=== PATIENT | male | born 1985 | race Caucasian/White ===

== ENCOUNTER 2017-05-10 18:59 | Inpatient (IN) | payer MEDICAID ==
[2017-05-10] MEDS ORDERED: CLINDAMYCIN 600MG/50ML PREMIX 600 MG/50 ML BAG IVPB ONE (19:15)
[2017-05-10] MEDS ORDERED: KETOROLAC 30 MG/ML VIAL IVP ONE (19:15)
[2017-05-10] MEDS ORDERED: 0.9 % SODIUM CHLORIDE 1000ML 1,000 ML IV SCH (19:15)
--- NOTE | 2017-05-10 19:21 | Emergency Department Record ---
History of Present Illness - General Chief complaint: Bite Insect/other Stated complaint: INSECT BITE RT FOREARM Source: Patient Mode of Arrival: Ambulatory Limitations: No limitations - History of Present Illness Initial comments: 31 yo male presents to ED with a CC of swelling and pain to the right forearm that began 4 days ago. Patient reports that the swelling began as a raised lesion to the forearm, and he reports that he squeezed the lesion with expression of "way and white" discharge. Patient denies fevers, chills, or recent illness. Patient denies numbness, tingling, or weakness to the forearm distally, and patient denies health problems at his baseline. MD complaint: Abscess/boil Onset/Timin -: Days(s) Location: RUE Severity: Moderate Quality: Aching Consistency: Constant Improves with: None Worsens with: None Associated symptoms: Denies other symptoms Treatments Prior to Arrival: Attempted to drain pus at home - Related Data Home Medications Medication Instructions Recorded Confirmed Last Taken No Home Med [NO HOME MEDS] 05/10/17 05/10/17 Unknown Allergies Allergy/AdvReac Type Severity Reaction Status Date / Time No Known Drug Allergies Allergy Verified 05/10/17 19:13 Review of Systems Constitutional: Denies: Chills, Fever, Malaise, Night sweats Eyes: Denies: Eye discharge, Eye pain ENT: Denies: Congestion, Ear pain, Epistaxis Respiratory: Denies: Cough, Dyspnea Cardiovascular: Denies: Chest pain, Dyspnea on exertion Endocrine: Denies: Fatigue, Heat or cold intolerance Gastrointestinal: Denies: Abdominal pain, Nausea, Vomiting Genitourinary: Denies: Incontinence, Retention Musculoskeletal: Denies: Arthralgia, Back pain, Gout, Joint swelling Skin: Reports: Lesions (swelling, pain, drainage). Denies: Bruising, Change in color, Pruritus Neurological: Denies: Abnormal gait, Confusion, Headache, Seizure Psychiatric: Denies: Anxiety Hematological/Lymphatic: Denies: Anemia, Blood Clots Physical Exam - General General Appearance: Alert, Oriented x3, Cooperative, Mild distress Limitations: No limitations - Head Head exam: Atraumatic, Normocephalic, Normal inspection Head exam detail: negative: Abrasion, Contusion, Aguilera's sign, General tenderness, Hematoma, Laceration - Eye Eye exam: Normal appearance. negative: Conjunctival injection, Periorbital swelling, Periorbital tenderness, Scleral icterus - ENT Ear exam: negative: Auricular hematoma, Auricular trauma Nasal Exam: negative: Active bleeding, Discharge, Dried blood, Foreign body Mouth exam: negative: Drooling, Laceration, Muffled voice, Tongue elevation - Neck Neck exam: Normal inspection. negative: Meningismus, Tenderness - Respiratory Respiratory exam: Normal lung sounds bilaterally. negative: Rales, Respiratory distress, Rhonchi, Stridor - Cardiovascular Cardiovascular Exam: Regular rate, Normal rhythm, Normal heart sounds - GI/Abdominal GI/Abdominal exam: Soft. negative: Rebound, Rigid, Tenderness - Rectal Rectal exam: Deferred - exam: Deferred - Extremities Extremities exam: Tenderness, Other (STS present to the right forearm, ulcerated lesion is present to the dorsyum of the forearm with mild drainage present, stroing distal radial pulse, no crepitation noted, compartments are soft on examination.). negative: Calf tenderness, Pedal edema - Back Back exam: Denies: CVA tenderness (R), CVA tenderness (L) - Neurological Neurological exam: Alert, Normal gait, Oriented X3 - Psychiatric Psychiatric exam: Normal affect, Normal mood - Skin Skin exam: Normal color. negative: Abrasion Type of lesion: negative: abrasion Course - Reevaluation(s) Reevaluation #1: 05/10/17 20:05 Labs reviewed and are grossly unremarkable for an acute process. Right forearm: No acute gas forming bacteria. Clindamycin infusing, will admit for IV antibiotics and possible surgical evaluation. Patient agrees with the plan as discussed. Reevaluation #2: 05/10/17 20:11 Case was discussed with Ольга Sharif, will accept admission. Will also place consultation for general surgery consult in AM. Medical Decision Making - Lab Data Result diagrams: 05/10/17 19:23 05/10/17 19:23 Disposition Disposition: Admit Clinical Impression: Cellulitis of forearm, right Disposition: Still a Patient at [facility] Decision to Admit: Admit from ER Decision to Admit Date: 05/10/17 Decision to Admit Time: 20:10 Condition: (2) Stable Time of Disposition: 20:10 Quality - Quality Measures Quality Measures: N/A - Blood Pressure Screening Does Patient Have Any of the Following: No Blood Pressure Classification: Pre-Hypertensive BP Reading Systolic Measurement: 125 Diastolic Measurement: 86 Screening for High Blood Pressure: < Pre-Hypertensive BP, F/U Documented > [ [id number]] Pre-Hypertensive Follow-up Interventions: Referral to alternative/primary care provider.
[2017-05-10 19:29] LABS: BASO % 0.5 % (0-6); EOS % 4.1 % (0-6); GRAN % 66.1 % (47-80); HEMATOCRIT 40.3 % (42.0-52.0); HEMOGLOBIN 13.9 gm/dl (14.0-18.0); LYMPH % 22.1 % (16-45); MEAN CELL VOLUME 87.6 fl (81-97); MEAN CORPUSCULAR HEMOGLOBIN 30.2 pg (27-33); MEAN CORPUSCULAR HGB CONC 34.5 g/dl (32-36); MONO % 7.2 % (0-9); PLATELET COUNT 222 K/uL (130-400); RED CELL DISTRIBUTION WIDTH 12.4 % (11.5-14.5); WHITE BLOOD COUNT W/O DIFF 10.8 K/uL (4.2-12.2)
[2017-05-10 19:47] LABS: ALB/GLOB RATIO 1.4 (1.1-1.8); ALBUMIN 4.2 g/dL (4.0-5.0); ALKALINE PHOSPHATASE 72 U/L (40-129); ALT/SGPT 20 U/L (<41); AST/SGOT 14 U/L (10.0-50.0); BLOOD UREA NITROGEN 16 mg/dL (6-20); C-REACTIVE PROTEIN 2.4 mg/L (<5.0); CREATININE 0.8 mg/dL (0.7-1.2); EST GLOMERULAR FILTRATION RATE > 60 mL/min; GLUCOSE,RANDOM 146 mg/dL (74-109); TOTAL PROTEIN 7.3 g/dL (6.6-8.7)
[2017-05-10 20:00] LABS: ERYTHROCYTE SEDIMENTATION RATE 13 mm/hr (0-15)
[2017-05-10] MEDS ORDERED: MORPHINE SULFATE 5 MG/ML PFS IVP ONE (20:07)
[2017-05-10] MEDS ORDERED: ONDANSETRON HCL IV 4 MG/2 ML VIAL IVP PRN (21:41)
[2017-05-10] MEDS: CLINDAMYCIN 600MG/50ML PREMIX 600 MG/50 ML BAG IVPB SCH (21:44)
[2017-05-10] MEDS: 0.9 % SODIUM CHLORIDE 1000ML 1,000 ML IV PRN (23:22)
[2017-05-11] MEDS: MORPHINE SULFATE 5 MG/ML PFS IVP PRN ×3 (00:26→08:44)
[2017-05-11] MEDS: CLINDAMYCIN 600MG/50ML PREMIX 600 MG/50 ML BAG IVPB SCH ×3 (06:09→21:31)
[2017-05-11 07:14] LABS: BASO % 0.4 % (0-6); EOS % 4.6 % (0-6); HEMATOCRIT 35.2 % (42.0-52.0); HEMOGLOBIN 12.1 gm/dl (14.0-18.0); LYMPH % 26.8 % (16-45); MEAN CELL VOLUME 88.9 fl (81-97); MEAN CORPUSCULAR HGB CONC 34.4 g/dl (32-36); MEAN PLATELET VOLUME 9.1 fl (7.4-10.4); MONO % 8.2 % (0-9); PLATELET COUNT 163 K/uL (130-400); RED BLOOD COUNT 3.96 M/uL (4.40-5.70); RED CELL DISTRIBUTION WIDTH 12.2 % (11.5-14.5); WHITE BLOOD COUNT W/O DIFF 9.2 K/uL (4.2-12.2)
[2017-05-11 07:18] LABS: MEAN CORPUSCULAR HEMOGLOBIN 30.5 pg (27-33)
--- NOTE | 2017-05-11 07:23 | RADIOLOGY REPORT ---
EXAM: RIGHT FOREARM HISTORY: PAIN AND SWELLING. POSSIBLE INSECT BITE. TECHNIQUE: AP and lateral views of the right forearm were obtained. Comparison: None. Encounter: Initial. FINDINGS: There is normal bone mineralization. No fracture, dislocation, or destructive bone lesion is seen. The articular relations are maintained. There is soft tissue swelling involving the dorsal lateral aspect of the forearm consistent with cellulitis. No foreign body nor subcutaneous emphysema. IMPRESSION: 1. NO ACUTE BONE NOR JOINT ABNORMALITY. 2. SOFT TISSUE SWELLING DORSAL LATERALLY CENTERED AT THE MID FOREARM LEVEL WITHOUT FOREIGN BODY NOR SOFT TISSUE EMPHYSEMA. JOB NUMBER: [id number] MTDD
[2017-05-11 07:32] LABS: BLOOD UREA NITROGEN 15 mg/dL (6-20); CREATININE 0.7 mg/dL (0.7-1.2); EST GLOMERULAR FILTRATION RATE > 60 mL/min; GLUCOSE,RANDOM 139 mg/dL (74-109)
[2017-05-11 07:52] LABS: ERYTHROCYTE SEDIMENTATION RATE 14 mm/hr (0-15)
[2017-05-11] MEDS: 0.9 % SODIUM CHLORIDE 1000ML 1,000 ML IV PRN (10:43)
[2017-05-11] MEDS ORDERED: 0.9 % SODIUM CHLORIDE 1000ML 1,000 ML IV PRN (10:52)
--- NOTE | 2017-05-11 11:00 | History & Physical ---
History of Present Illness - Date of Service Date of Service for History & Physical: 05/11/17 - History of Present Illness Admitting Diagnosis: Cellulitis right forearm History of Present Illness: 31 yo male admitted for right forearm cellulitis. PMHx of smoking, marijuana use. Patient presented to our ED with a 5 day history of right forearm pain. states he had been bitten by a spider 5 days ago. Right lateral forearm swelling, erythema and warmth began within the past 24 hours. He reports being able to express "way and white" d/c from site. WBC normal, afebrile on presentation. x ray of site: right swelling of soft tissue dorsal laterally centered at mid forearm level w/o FB nor soft tissue emphysema. patient started on IV Clindamycin 600 mg Q8H, IVFs and 5 mg of IV Morphine Q4H. Admitted with surgical consults. This morning, patient does not note any change in cellulitis. denies worsening swelling or erythema. Pain well controlled for the first 1-2 hours, however he finds the morphine to be wearing off. remains afebrile. denies numbness, tingling, decreased UE ROM, fever, chills, n/v. Denies h/o MRSA. PCP: none Travel Screening - Travel/Exposure Within Last 30 Days Have you traveled within the last 30 days?: No - Travel/Exposure Within Last Year Have you traveled outside the [place] in the last year?: No - Additonal Travel Details Have you been exposed to anyone with a communicable illness?: No Review of Systems Constitutional: Denies: Chills, Fever, Malaise, Night sweats Eyes: Denies: Eye discharge, Eye pain ENT: Denies: Congestion, Ear pain, Epistaxis Respiratory: Denies: Cough, Dyspnea Cardiovascular: Denies: Chest pain, Dyspnea on exertion Endocrine: Denies: Fatigue, Heat or cold intolerance Gastrointestinal: Denies: Abdominal pain, Nausea, Vomiting Genitourinary: Denies: Incontinence, Retention Musculoskeletal: Denies: Arthralgia, Back pain, Gout, Joint swelling Skin: Reports: Lesions (swelling, pain, drainage). Denies: Bruising, Change in color, Pruritus Neurological: Denies: Abnormal gait, Confusion, Headache, Seizure Psychiatric: Denies: Anxiety Hematological/Lymphatic: Denies: Anemia, Blood Clots Past Medical History - SOCIAL HISTORY Smoking Status: Current every day smoker Alcohol Use: Occasional Drug Use: Occasional Drug Use Detail:: Marijuana - RESPIRATORY Hx Respiratory Disorders: No - CARDIOVASCULAR Hx Cardio Disorders: No - NEURO Hx Neuro Disorders: No - GI Hx GI Disorders: No - Hx Genitourinary Disorders: No - ENDOCRINE Hx Endocrine Disorders: No - MUSCULOSKELETAL Hx Musculoskeletal Disorders: No Hx Arthritis: Yes (knee) - PSYCH Hx Psych Problems: No - HEMATOLOGY/ONCOLOGY Hx Hematology/Oncology Disorders: No Family Medical History Any Significant Family History?: No Hx Cancer: Father, Mother, Grandparents Hx Depression: Brother/Sister Hx Diabetes: Mother Hx HTN: Father, Mother H&P Meds/Allergies - Allergies Allergies: Allergies Allergy/AdvReac Type Severity Reaction Status Date / Time No Known Drug Allergies Allergy Verified 05/10/17 19:13 - Home Medications Home Medications Medication Instructions Recorded Confirmed Last Taken No Home Med [NO HOME MEDS] 05/10/17 05/10/17 Unknown - Active Medications Active Medications: Current Medications Hydrocodone Bitart/Acetaminophen ([place] 7.5mg/325mg) 1 each PO Q4H PRN PRN Reason: Pain - General Clindamycin Phosphate (Cleocin 600 [id number]) 600 mg in 50 mls @ 100 mls/ hr IVPB Q8HR TALIA Sodium Chloride () 1,000 mls @ 50 mls/hr IV .Q20H PRN PRN Reason: LARGE VOLUME IV Ibuprofen (Motrin 600mg) 600 mg PO Q6H PRN PRN Reason: Pain - General Ondansetron HCl (Zofran) 4 mg IVP Q6H PRN PRN Reason: NAUSEA Physical Exam - Vital Signs Vital Signs: Vital Signs - Last 24 Hrs Temp Pulse Pulse Resp BP Pulse Ox 05/11/17 09:00 60 16 05/11/17 05:41 97.9 F 64 18 94/56 97 05/10/17 21:41 98.0 F 75 16 114/74 99 05/10/17 21:33 98.7 F 70 18 105/60 98 - General General Appearance: Alert, Oriented x3, Cooperative, No acute distress Limitations: No limitations - Head Head exam: Atraumatic, Normocephalic, Normal inspection Head exam detail: negative: Abrasion, Contusion, Aguilera's sign, General tenderness, Hematoma, Laceration - Eye Eye exam: Normal appearance. negative: Conjunctival injection, Periorbital swelling, Periorbital tenderness, Scleral icterus - ENT Ear exam: negative: Auricular hematoma, Auricular trauma Nasal Exam: negative: Active bleeding, Discharge, Dried blood, Foreign body Mouth exam: negative: Drooling, Laceration, Muffled voice, Tongue elevation - Neck Neck exam: Normal inspection. negative: Meningismus, Tenderness - Respiratory Respiratory exam: Normal lung sounds bilaterally. negative: Rales, Respiratory distress, Rhonchi, Stridor - Cardiovascular Cardiovascular Exam: Regular rate, Normal rhythm, Normal heart sounds - GI/Abdominal GI/Abdominal exam: Soft. negative: Rebound, Rigid, Tenderness - Rectal Rectal exam: Deferred - exam: Deferred - Extremities Extremities exam: Tenderness, Other (STS present to the right forearm, ulcerated lesion is present to the dorsyum of the forearm with mild drainage present, stroing distal radial pulse, no crepitation noted, compartments are soft on examination.). negative: Calf tenderness, Pedal edema - Back Back exam: Denies: CVA tenderness (R), CVA tenderness (L) - Neurological Neurological exam: Alert, Normal gait, Oriented X3 - Psychiatric Psychiatric exam: Normal affect, Normal mood - Skin Skin exam: Normal color. negative: Abrasion Type of lesion: negative: abrasion Results - Labs Result Diagrams: 05/11/17 07:04 05/11/17 07:04 Labs Last 24 Hours: Laboratory Results - last 24 hr 05/11/17 05/11/17 07:04 07:04 WBC 9.2 RBC 3.96 L Hgb 12.1 L Hct 35.2 L MCV 88.9 MCH 30.5 MCHC 34.4 RDW 12.2 Plt Count 163 MPV 9.1 Gran % 60.0 Lymphocytes % 26.8 Monocytes % 8.2 Eosinophils % 4.6 Basophils % 0.4 ESR 14 Sodium 137 Potassium 3.8 Chloride 101 Carbon Dioxide 25.0 Anion Gap 11.0 BUN 15 Creatinine 0.7 Estimated GFR > 60 Random Glucose 139 H Calcium 8.1 L VTE H&P Assessment - Risk for VTE Risk for VTE: Yes Risk Level: Very Low Risk Assessment Date: 05/11/17 Risk Assessment Time: 09:00 VTE Orders Placed or Will Be Placed: No VTE Reason for No Prophylaxis: Not Indicated (patient ambulating the room) Plan - Detailed Diagnosis and Plan (1) Cellulitis of forearm, right Current Visit: Yes Status: Acute Base Code: L03.113 - CELLULITIS OF RIGHT UPPER LIMB Comment: 05/11- x ray: right ST swelling dorsal laterally centered at mid forearm level w/o FB or soft tissue emphysema. normal WBC, ESR. Afebrile. - obtain culture - gen surg consult - decrease IVFs to 50 mls/hr - continue Clindamycin 600 mg Q8H - Morphine D/C's. Will start PO [place] 7.5/325 mg Q4H, 600 mg of Ibuprofen Q6H. - will continue to monitor closely. I anticipate D/C home tomorrow depending on symptom improvement and pain control. (2) Smoker Current Visit: Yes Status: Acute Base Code: F17.200 - NICOTINE DEPENDENCE, UNSPECIFIED, UNCOMPLICATED Comment: 05/11- nicotine patch qd (3) Full code status Current Visit: Yes Status: Acute Base Code: Z78.9 - OTHER SPECIFIED HEALTH STATUS Comment: 05/11- pt is full code
[2017-05-11] MEDS: HYDROCODONE/APAP 7.5/325MG TABLET PO PRN ×3 (11:25→20:24)
[2017-05-11] MEDS: NICOTINE 21 MG/24 HOUR PATCH TD SCH (11:25)
[2017-05-11] MEDS: IBUPROFEN 600 MG TABLET PO PRN ×2 (13:57→20:14)
[2017-05-11 17:47] LABS: BASO % 0.5 % (0-6); EOS % 4.7 % (0-6); GRAN % 61.7 % (47-80); HEMATOCRIT 36.4 % (42.0-52.0); HEMOGLOBIN 12.7 gm/dl (14.0-18.0); LYMPH % 24.3 % (16-45); MEAN CELL VOLUME 87.7 fl (81-97); MEAN CORPUSCULAR HEMOGLOBIN 30.6 pg (27-33); MEAN CORPUSCULAR HGB CONC 34.9 g/dl (32-36); MEAN PLATELET VOLUME 9.1 fl (7.4-10.4); MONO % 8.8 % (0-9); PLATELET COUNT 190 K/uL (130-400); RED BLOOD COUNT 4.15 M/uL (4.40-5.70); RED CELL DISTRIBUTION WIDTH 12.2 % (11.5-14.5); WHITE BLOOD COUNT W/O DIFF 8.1 K/uL (4.2-12.2)
[2017-05-11 18:20] LABS: ERYTHROCYTE SEDIMENTATION RATE 21 mm/hr (0-15)
[2017-05-11] MEDS ORDERED: MORPHINE SULFATE 5 MG/ML PFS IVP PRN (22:29)
[2017-05-12] MEDS: HYDROCODONE/APAP 7.5/325MG TABLET PO PRN ×4 (03:06→20:06)
[2017-05-12] MEDS: CLINDAMYCIN 600MG/50ML PREMIX 600 MG/50 ML BAG IVPB SCH ×3 (05:56→21:07)
[2017-05-12] MEDS: IBUPROFEN 600 MG TABLET PO PRN ×2 (06:06→12:53)
[2017-05-12 06:38] LABS: BASO % 0.6 % (0-6); EOS % 4.5 % (0-6); GRAN % 60.6 % (47-80); HEMATOCRIT 37.6 % (42.0-52.0); LYMPH % 26.8 % (16-45); MEAN CELL VOLUME 88.1 fl (81-97); MEAN CORPUSCULAR HEMOGLOBIN 30.4 pg (27-33); MEAN CORPUSCULAR HGB CONC 34.6 g/dl (32-36); MEAN PLATELET VOLUME 9.4 fl (7.4-10.4); MONO % 7.5 % (0-9); PLATELET COUNT 194 K/uL (130-400); RED BLOOD COUNT 4.27 M/uL (4.40-5.70); RED CELL DISTRIBUTION WIDTH 12.1 % (11.5-14.5); WHITE BLOOD COUNT W/O DIFF 8.9 K/uL (4.2-12.2)
[2017-05-12 07:37] LABS: ERYTHROCYTE SEDIMENTATION RATE 23 mm/hr (0-15)
--- NOTE | 2017-05-12 10:53 | Physician Progress Note ---
Subjective - Date Date of Physician Progress Note: 05/12/17 - Subjective Subjective Comment: patient lying comfortably in bed. right forearm cellulitis less painful. swelling & erythema (outlined) surrounding site improving. continues to have yellow drainage from site. patient tolerating meals. denies fever, chills, n/ v. ambulating the room. nicotine patch helping. Objective - Vital Signs Vital Signs: Vital Signs - Last 24 Hrs Temp Pulse Resp BP Pulse Ox 05/12/17 08:47 15 05/12/17 03:08 97.3 F L 66 19 117/69 98 05/11/17 21:00 18 05/11/17 20:40 97.6 F 77 18 135/78 92 L 05/11/17 13:00 98.3 F 67 18 100/60 97 - General General Appearance: Alert, Oriented x3, Cooperative, No acute distress Limitations: No limitations - Head Head exam: Atraumatic, Normocephalic, Normal inspection Head exam detail: negative: Abrasion, Contusion, Aguilera's sign, General tenderness, Hematoma, Laceration - Eye Eye exam: Normal appearance. negative: Conjunctival injection, Periorbital swelling, Periorbital tenderness, Scleral icterus - ENT Ear exam: negative: Auricular hematoma, Auricular trauma Nasal Exam: negative: Active bleeding, Discharge, Dried blood, Foreign body Mouth exam: negative: Drooling, Laceration, Muffled voice, Tongue elevation - Neck Neck exam: Normal inspection. negative: Meningismus, Tenderness - Respiratory Respiratory exam: Normal lung sounds bilaterally, Wheezes (faint throughout). negative: Rales, Respiratory distress, Rhonchi, Stridor - Cardiovascular Cardiovascular Exam: Regular rate, Normal rhythm, Normal heart sounds - GI/Abdominal GI/Abdominal exam: Soft. negative: Rebound, Rigid, Tenderness - Rectal Rectal exam: Deferred - exam: Deferred - Extremities Extremities exam: Tenderness, Other (STS present to the right forearm, ulcerated lesion is present to the dorsyum of the forearm with mild yellow drainage present, strong distal radial pulse & cap refill, no crepitation noted , compartments are soft on examination. normal R elbow and wrist ROM). negative : Calf tenderness, Pedal edema - Back Back exam: Denies: CVA tenderness (R), CVA tenderness (L) - Neurological Neurological exam: Alert, Normal gait, Oriented X3 - Psychiatric Psychiatric exam: Normal affect, Normal mood - Skin Skin exam: Normal color. negative: Abrasion Type of lesion: negative: abrasion Assessment and Plan - Assessment and Plan (1) Cellulitis of forearm, right Current Visit: Yes Status: Acute Base Code: L03.113 - CELLULITIS OF RIGHT UPPER LIMB Comment: 05/12- x ray: right ST swelling dorsal laterally centered at mid forearm level w/o FB or soft tissue emphysema. normal WBC. ESR 24 ( increased from 14). Afebrile. CT of site: cellulitis, ow relatively unremarkable. - culture pending - gen surg consult- Dr. Donald contacted re patient. He will come see patient later today. - hold IVFs. encouraged PO hydration. - continue IV Clindamycin 600 mg Q8H - PO [place] 7.5/325 mg Q4H, 600 mg of Ibuprofen Q6H, 5 mg of IV Morphine PRN for breakthrough pain - will continue to monitor closely. (2) Smoker Current Visit: Yes Status: Acute Base Code: F17.200 - NICOTINE DEPENDENCE, UNSPECIFIED, UNCOMPLICATED Comment: 05/12- nicotine patch qd (3) Full code status Current Visit: Yes Status: Acute Base Code: Z78.9 - OTHER SPECIFIED HEALTH STATUS Comment: 05/12- pt is full code Results - Labs Result Diagrams: 05/12/17 06:20 05/11/17 07:04 Labs Last 24 Hours: Laboratory Results - last 24 hr 05/11/17 05/12/17 17:42 06:20 WBC 8.1 8.9 RBC 4.15 L 4.27 L Hgb 12.7 L 13.0 L Hct 36.4 L 37.6 L MCV 87.7 88.1 MCH 30.6 30.4 MCHC 34.9 34.6 RDW 12.2 12.1 Plt Count 190 194 MPV 9.1 9.4 Gran % 61.7 60.6 Lymphocytes % 24.3 26.8 Monocytes % 8.8 7.5 Eosinophils % 4.7 4.5 Basophils % 0.5 0.6 ESR 21 H 23 H DVT/PE Assessment - Risk for VTE Risk for VTE: No Risk Level: Very Low Risk Assessment Date: 05/11/17 Risk Assessment Time: 09:00 VTE Orders Placed or Will Be Placed: No VTE Reason for No Prophylaxis: Not Indicated (patient ambulating the room) - Active Medicaitons Current Medications: Current Medications Hydrocodone Bitart/Acetaminophen ([place] 7.5mg/325mg) 1 each PO Q4H PRN PRN Reason: Pain - General Last Admin: 05/12/17 09:54 Dose: 1 each Clindamycin Phosphate (Cleocin 600 [id number]) 600 mg in 50 mls @ 100 mls/ hr IVPB Q8HR TALIA Last Infusion: 05/12/17 06:48 Dose: Infused Ibuprofen (Motrin 600mg) 600 mg PO Q6H PRN PRN Reason: Pain - General Last Admin: 05/12/17 06:06 Dose: 600 mg Morphine Sulfate (Morphine Sulfate) 5 mg IVP Q6H PRN PRN Reason: pain Stop: 05/18/17 22:30 Last Admin: 05/11/17 22:39 Dose: 5 mg Nicotine (Nicotine 21mg) 1 patch TD Q24H TALIA Last Admin: 05/11/17 11:25 Dose: 1 patch Ondansetron HCl (Zofran) 4 mg IVP Q6H PRN PRN Reason: NAUSEA AMI Plan - Labs Result Diagrams: 05/12/17 06:20 05/11/17 07:04
[2017-05-12] MEDS: NICOTINE 21 MG/24 HOUR PATCH TD SCH (12:53)
[2017-05-13] MEDS: HYDROCODONE/APAP 7.5/325MG TABLET PO PRN ×3 (00:56→14:04)
[2017-05-13] MEDS: CLINDAMYCIN 600MG/50ML PREMIX 600 MG/50 ML BAG IVPB SCH (05:38)
--- NOTE | 2017-05-13 10:50 | Discharge Summary ---
Providers Discharge Summary Date: 05/13/17 Date of admission: 05/10/17 21:28 Expected Date of Discharge: 05/13/17 Attending physician: Arthur Nagel Physical Exam - Vital Signs Vital Signs: Vital Signs - Last 24 Hrs Temp Pulse Resp BP Pulse Ox 05/13/17 05:37 98.2 F 73 18 115/84 98 05/12/17 21:34 98.0 F 75 18 138/81 97 05/12/17 20:45 16 05/12/17 11:21 98 F 86 16 114/73 98 - General General Appearance: Alert, Oriented x3, Cooperative, No acute distress Limitations: No limitations - Head Head exam: Atraumatic, Normocephalic, Normal inspection Head exam detail: negative: Abrasion, Contusion, Aguilera's sign, General tenderness, Hematoma, Laceration - Eye Eye exam: Normal appearance. negative: Conjunctival injection, Periorbital swelling, Periorbital tenderness, Scleral icterus - ENT Ear exam: negative: Auricular hematoma, Auricular trauma Nasal Exam: negative: Active bleeding, Discharge, Dried blood, Foreign body Mouth exam: negative: Drooling, Laceration, Muffled voice, Tongue elevation - Neck Neck exam: Normal inspection. negative: Meningismus, Tenderness - Respiratory Respiratory exam: Normal lung sounds bilaterally, Wheezes (faint throughout). negative: Rales, Respiratory distress, Rhonchi, Stridor - Cardiovascular Cardiovascular Exam: Regular rate, Normal rhythm, Normal heart sounds - GI/Abdominal GI/Abdominal exam: Soft. negative: Rebound, Rigid, Tenderness - Rectal Rectal exam: Deferred - exam: Deferred - Extremities Extremities exam: Tenderness, Other (STS present to the right forearm- has significantly improved, ulcerated lesion is present to the dorsyum of the forearm with mild yellow drainage present. erythema has decreased. not going past drawn borders. strong distal radial pulse & cap refill, no crepitation noted, compartments are soft on examination. normal R elbow and wrist ROM). negative: Calf tenderness, Pedal edema - Back Back exam: Denies: CVA tenderness (R), CVA tenderness (L) - Neurological Neurological exam: Alert, Normal gait, Oriented X3 - Psychiatric Psychiatric exam: Normal affect, Normal mood - Skin Skin exam: Normal color. negative: Abrasion Type of lesion: negative: abrasion Hospitalization - Hospitalization Admission Diagnosis: Cellulitis right forearm - Problem List/Discharge Diagnosis (1) Cellulitis of forearm, right Current Visit: Yes Status: Acute Base Code: L03.113 - CELLULITIS OF RIGHT UPPER LIMB Comment: 05/13- x ray: right ST swelling dorsal laterally centered at mid forearm level w/o FB or soft tissue emphysema. normal WBC. Remained afebrile during stay. CT of site: cellulitis, ow relatively unremarkable. - preliminary cx: staph, sensitivity pending. - complete Clindamycin course. - PO [place] 7.5/325 mg Q4H, 600 mg of Ibuprofen Q6H - keep area clean. change bandage twice daily. - return to our urgent care Tuesday at noon for recheck of wound by myself (2) Smoker Current Visit: Yes Status: Acute Base Code: F17.200 - NICOTINE DEPENDENCE, UNSPECIFIED, UNCOMPLICATED Comment: 05/13- follow up with pcp re smoking cessation (3) Full code status Current Visit: Yes Status: Acute Base Code: Z78.9 - OTHER SPECIFIED HEALTH STATUS Comment: 05/13- pt remained full code - Hospitalization Course Disposition: Home, Self-Care Hospital Course: 31 yo male admitted for right forearm cellulitis. PMHx of smoking, marijuana use. Patient presented to our ED with a 5 day history of right forearm pain. states he had been bitten by a spider 5 days ago. Right lateral forearm swelling, erythema and warmth began within the past 24 hours. He reports being able to express "way and white" d/c from site. WBC normal, afebrile on presentation. x ray of site: right swelling of soft tissue dorsal laterally centered at mid forearm level w/o FB nor soft tissue emphysema. patient started on IV Clindamycin 600 mg Q8H, IVFs and 5 mg of IV Morphine Q4H. Admitted with surgical consults. This morning, patient does not note any change in cellulitis. denies worsening swelling or erythema. Pain well controlled for the first 1-2 hours, however he finds the morphine to be wearing off. remains afebrile. denies numbness, tingling, decreased UE ROM, fever, chills, n/v. Denies h/o MRSA. PCP: none 05/13- patient sitting up in bed comfortably. states he didn't sleep last night. he typically takes 30 mg of melatonin and did not have this. states pain has decreased. he continues to use norco and ibuprofen for discomfort. less drainage on bandage. afebrile. swelling/erythema have gone down. tolerating meals. ambulating the room. normal GI/ function. no additional concerns. Procedures: Imaging and X-Rays 05/11/17 16:24 UPPER EXTREMITY WWO CONTRAST [CT] Stat Abnormal Labs: Abnormal Lab Results 05/11/17 05/11/17 05/11/17 Range/Units 07:04 07:04 17:42 RBC 3.96 L 4.15 L (4.40-5.70) M/uL Hgb 12.1 L 12.7 L (14.0-18.0) gm/dl Hct 35.2 L 36.4 L (42.0-52.0) % ESR 21 H (0-15) mm/hr Random Glucose 139 H (74-109) mg/dL Calcium 8.1 L (8.6-10.0) mg/dL 05/12/17 Range/Units 06:20 RBC 4.27 L (4.40-5.70) M/uL Hgb 13.0 L (14.0-18.0) gm/dl Hct 37.6 L (42.0-52.0) % ESR 23 H (0-15) mm/hr Random Glucose (74-109) mg/dL Calcium (8.6-10.0) mg/dL Condition at Discharge: (2) Stable Discharge Medications - Discharge Medications Prescriptions: Hydrocodone/Acetaminophen [[place] 7.5-325 Tablet] 1 each PO Q6HR PRN #12 tablet PRN Reason: Pain - General Clindamycin HCl [Cleocin HCl] 300 mg PO Q6H #32 cap Ibuprofen [Motrin 600Mg] 600 mg PO Q6H PRN #40 PRN Reason: Pain - General Home Medications: Ambulatory Orders Clindamycin HCl [Cleocin HCl] 300 mg PO Q6H #32 cap 05/13/17 [Last Taken Unknown ] Hydrocodone/Acetaminophen [[place] 7.5-325 Tablet] 1 each PO Q6HR PRN #12 tablet 05/13/17 [Last Taken Unknown] Ibuprofen [Motrin 600Mg] 600 mg PO Q6H PRN #40 05/13/17 [Last Taken Unknown] Discharge Plan - Discharge Instructions Activity at Discharge: Increase Activity as Tolerated Diet at Discharge: Regular Diet Wound Primary Dressing Type: Non-Adherent Gauze Pad Additional Instructions: Medications: Clindamycin 300 mg Q6H's- take complete prescription [place] 7.5/325 Q6H and Ibuprofen as needed for pain. keep site clean. change bandage twice daily. return to our urgent care at noon on Wednesday 05/16 for recheck of wound. monitor for worsening swelling, erythema, and fever or chills. return sooner if this is the case. Quality Measures - Quality Measures Quality Measures: Documentation of Current Medications in Medical Record, Screening for High Blood Pressure and F/U Documented - Current Medications Quality Measure: Measure #130: Documentation of Current Medications Documentation of Current Medications: <Current Medications Documented/Reviewed> [G8427] - Blood Pressure Screening Quality Measure: Screening for High Blood Pressure and Follow-Up Documented Does Patient Have Any of the Following: No Blood Pressure Classification: Pre-Hypertensive BP Reading Systolic Measurement: 125 Diastolic Measurement: 86 Screening for High Blood Pressure: < Normal BP, F/U Not Required > [G8783] Pre-Hypertensive Follow-up Interventions: Follow-up with rescreen every year. - Elder Abuse Suspicion Index EASI Reference Information: Hanane HANSON, Jameel C, Didier D, Lilibeth Porter.Development and validation of a tool to assist physicians identification of elder abuse: The Elder Abuse Suspicion Index (EASI ). Journal of Elder Abuse and Neglect, 2008; 20 (3): 276-300.
[2017-05-13] MEDS: NICOTINE 21 MG/24 HOUR PATCH TD SCH (11:43)
[2017-05-13] MEDS ORDERED: CLINDAMYCIN 150 MG CAP PO SCH ×2 (12:00→14:00)
--- NOTE | 2017-05-13 16:08 | CT SCAN REPORT ---
EXAM: CT SCAN UPPER EXTREMITY WWO CONTRAST HISTORY: CELLULITIS, STATUS POST BITE. TECHNIQUE: Sequential axial images were obtained through the left upper extremity with and without intravenous administration of 100 mL of Omnipaque- 300 contrast material. FINDINGS: There is diffuse cellulitis. No organized fluid collection to suggest abscess. The osseous structures are normal. IMPRESSION: DIFFUSE CELLULITIS. NO ORGANIZED FLUID COLLECTION TO SUGGEST ABSCESS. NO OSSEOUS ABNORMALITY. JOB NUMBER: [id number] MTDD
== END 2017-05-13 15:29 | disposition home or self-care (01) | DRG 603 ==
LOC: ER 18:59 → OBSVTOIN 21:28 → MERGE 21:28 → MEDSURG 21:28
PROVIDERS: ADMIT Internal Medicine; ATTEND Internal Medicine
DX: L03.113 Cellulitis of right upper limb (principal); B95.62 Methicillin resistant Staphylococcus aureus infection as the cause of diseases classified elsewhere; W57.XXXA Bitten or stung by nonvenomous insect and other nonvenomous arthropods, initial encounter; Z87.891 Personal history of nicotine dependence
CPT/HCPCS: 80048; 80053; 85025; 85651; 86140; 96366; 96375; 99223; 99232; 99239; 99285; J1885; J7030

== ENCOUNTER 2017-09-02 14:19 | Emergency (ER) | payer MEDICAID ==
[2017-09-02] MEDS ORDERED: PANTOPRAZOLE SODIUM IV 40 MG VIAL IVP ONE (14:49)
[2017-09-02] MEDS ORDERED: ONDANSETRON HCL IV 4 MG/2 ML VIAL IV ONE (14:49)
[2017-09-02] MEDS ORDERED: 0.9 % SODIUM CHLORIDE 1,000 ML BAG IV ONE (14:49)
[2017-09-02] MEDS ORDERED: HYDROMORPHONE HCL 1 MG/ML SYRINGE IVP ONE (14:52)
--- NOTE | 2017-09-02 14:53 | Emergency Department Record ---
History of Present Illness - General Chief Complaint: Abdominal Pain Stated Complaint: ABD PAIN Time Seen by Provider: 09/02/17 14:41 Source: Patient Mode of Arrival: Ambulatory Limitations: No limitations - History of Present Illness Initial Comments: pt had coffee ground emesis and black stool today along with abd pain. pt fears he has cancer like his dad. Complaint: Abdominal pain Onset/Timin -: Hour(s) Location: LUQ, RUQ Radiation: None Migration to: No migration Severity: Severe Quality: Stabbing Consistency: Constant Improves With: Nothing Worsens With: Nothing Associated Symptoms: Diarrhea, Hematemesis, Hematochezia, Melena, Vomiting - Related Data Previous Rx's Medication Instructions Recorded Clindamycin HCl [Cleocin HCl] 300 mg PO Q6H #32 cap 05/13/17 Ibuprofen [Motrin 600Mg] 600 mg PO Q6H PRN #40 05/13/17 Omeprazole [Prilosec] 20 mg PO DAILY #14 cap 09/02/17 Allergies Allergy/AdvReac Type Severity Reaction Status Date / Time No Known Drug Allergies Allergy Verified 09/02/17 14:25 Travel Screening - Travel/Exposure Within Last 30 Days Have you traveled within the last 30 days?: No Review of Systems Reviewed: No additional complaints except as noted below Constitutional: Reports: As per HPI. Denies: Chills, Fever, Malaise, Night sweats, Weakness, Weight change Eyes: Reports: As per HPI. Denies: Eye discharge, Eye pain, Photophobia, Vision change ENT: Reports: As per HPI. Denies: Congestion, Dental pain, Ear pain, Epistaxis , Hearing loss, Throat pain Respiratory: Reports: As per HPI. Denies: Cough, Dyspnea, Hemoptysis, Stridor, Wheezes Cardiovascular: Reports: As per HPI. Denies: Arrhythmia, Chest pain, Dyspnea on exertion, Edema, Murmurs, Orthopnea, Palpitations, Paroxysmal nocturnal dyspnea, Rheumatic Fever, Syncope Endocrine: Reports: As per HPI. Denies: Fatigue, Heat or cold intolerance, Polydipsia, Polyuria Gastrointestinal: Reports: As per HPI, Abdominal pain, Hematemesis, Hematochezia , Melena, Nausea, Vomiting. Denies: Constipation, Diarrhea Genitourinary: Reports: As per HPI. Denies: Dysuria, Frequency, Hematuria, Incontinence, Retention, Testicular pain, Testicular mass, Urgency Musculoskeletal: Reports: As per HPI. Denies: Arthralgia, Back pain, Gout, Joint swelling, Myalgia, Neck pain Skin: Reports: As per HPI. Denies: Bruising, Change in color, Change in hair/ nails, Lesions, Pruritus, Rash Neurological: Reports: As per HPI. Denies: Abnormal gait, Confusion, Headache, Numbness, Paresthesias, Seizure, Tingling, Tremors, Vertigo, Weakness Psychiatric: Reports: As per HPI. Denies: Anxiety, Auditory hallucinations, Depression, Homicidal thoughts, Suicidal thoughts, Visual hallucinations Hematological/Lymphatic: Reports: As per HPI. Denies: Anemia, Blood Clots, Easy bleeding, Easy bruising, Swollen glands Past Medical History - SOCIAL HISTORY Smoking Status: Current every day smoker Alcohol Use: None Drug Use: None - RESPIRATORY Hx Respiratory Disorders: No - CARDIOVASCULAR Hx Cardio Disorders: No - NEURO Hx Neuro Disorders: No - GI Hx GI Disorders: No - Hx Genitourinary Disorders: No - ENDOCRINE Hx Endocrine Disorders: No - MUSCULOSKELETAL Hx Musculoskeletal Disorders: No - PSYCH Hx Psych Problems: No - HEMATOLOGY/ONCOLOGY Hx Hematology/Oncology Disorders: No Family Medical History Any Significant Family History?: Yes Hx Cancer: Father, Mother, Grandparents Hx Depression: Brother/Sister Hx Diabetes: Mother Hx HTN: Father, Mother Physical Exam - General General Appearance: Alert, Oriented x3, Cooperative, Moderate distress, Other ( hyperventilating) - Head Head exam: Normal inspection - Eye Eye exam: Normal appearance, PERRL, EOMI Pupils: Normal accommodation - ENT ENT exam: Normal exam, Mucous membranes moist, Normal external ear exam, Normal orophraynx Ear exam: Normal external inspection. negative: External canal tenderness Nasal Exam: Normal inspection. negative: Discharge, Sinus tenderness Mouth exam: Normal external inspection, Tongue normal Teeth exam: Normal inspection. negative: Dental caries Throat exam: Normal inspection. negative: Tonsillar erythema, Tonsillar exudate - Neck Neck exam: Normal inspection, Full ROM. negative: Tenderness - Respiratory Respiratory exam: Normal lung sounds bilaterally. negative: Respiratory distress - Cardiovascular Cardiovascular Exam: Normal rhythm, Normal heart sounds, Tachycardia - GI/Abdominal GI/Abdominal exam: Soft, Normal bowel sounds, Guarding, Tenderness - Rectal Rectal exam: Black stool, Heme (+) stool - exam: Deferred - Extremities Extremities exam: Normal inspection, Full ROM, Normal capillary refill. negative: Tenderness - Back Back exam: Reports: Normal inspection, Full ROM. Denies: Muscle spasm, Rash noted, Tenderness - Neurological Neurological exam: Alert, CN II-XII intact, Normal gait, Oriented X3 - Psychiatric Psychiatric exam: Anxious, Normal mood - Skin Skin exam: Dry, Intact, Normal color, Warm Course Vital Signs 09/02/17 14:30 Temperature 98.3 F Pulse Rate 133 H Respiratory 35 H Rate Blood Pressure 151/103 Pulse Ox 97 - Reevaluation(s) Reevaluation #1: 09/02/17 16:59 ng tube placed scant blood and brown contents. pt has a hx of motrin use though he denies in the last few days. Medical Decision Making - Lab Data Result diagrams: 09/02/17 14:50 09/02/17 14:50 Disposition Disposition: Discharge Clinical Impression: GI bleed Qualifiers: GI bleed type/associated pathology: gastritis Gastritis type: unspecified gastritis Qualified Code(s): K29.71 - Gastritis, unspecified, with bleeding Disposition: Home, Self-Care Condition: (1) Good Instructions: Gastrointestinal Bleeding (ED) Additional Instructions: follow up with GI doctor. return sooner if worse. no motrin, peptobismal or aspirin Prescriptions: Omeprazole [Prilosec] 20 mg PO DAILY #14 Referrals: LINDA CHUNG [DOCTOR OF OSTEOPATH] - [facility] Specialty Clinics [Provider Group] Forms: Patient Portal Access Quality - Quality Measures Quality Measures: N/A - Blood Pressure Screening Does Patient Have Any of the Following: No Blood Pressure Classification: Hypertensive Reading Systolic Measurement: 151 Diastolic Measurement: 103 Screening for High Blood Pressure: < First Hypertensive BP, F/U Documented > [ G8950] First Hypertensive Follow-up Interventions: Follow-up with rescreen GT 1 day and LT 4 weeks.
[2017-09-02 15:11] LABS: BASO % 0.2 % (0-6); EOS % 0.1 % (0-6); GRAN % 71.8 % (47-80); HEMATOCRIT 39.9 % (42.0-52.0); LYMPH % 21.3 % (16-45); MEAN CELL VOLUME 86.7 fl (81-97); MEAN CORPUSCULAR HEMOGLOBIN 30.4 pg (27-33); MEAN CORPUSCULAR HGB CONC 35.1 g/dl (32-36); MEAN PLATELET VOLUME 9.9 fl (7.4-10.4); MONO % 6.6 % (0-9); PLATELET COUNT 285 K/uL (130-400); RED CELL DISTRIBUTION WIDTH 12.4 % (11.5-14.5); WHITE BLOOD COUNT W/O DIFF 13.6 K/uL (4.2-12.2)
[2017-09-02 15:17] LABS: BLOOD UREA NITROGEN 17 mg/dL (6-20); CREATININE 0.7 mg/dL (0.7-1.2); EST GLOMERULAR FILTRATION RATE > 60 mL/min
[2017-09-02 15:20] LABS: GLUCOSE,RANDOM 140 mg/dL (74-109)
[2017-09-02 15:23] LABS: ALBUMIN 5.1 g/dL (4.0-5.0); ALKALINE PHOSPHATASE 62 U/L (40-129); ALT/SGPT 19 U/L (<41); AST/SGOT 23 U/L (10.0-50.0); LIPASE 10 U/L (13-60)
[2017-09-02] MEDS ORDERED: LORAZEPAM 2 MG/ML VIAL IV ONE (15:28)
[2017-09-02 15:29] LABS: BILIRUBIN,DIRECT < 0.2 mg/dL (0-0.3)
[2017-09-02] MEDS ORDERED: MAGNESIUM HYDROXIDE/AL HYDROX 30 ML, LIDOCAINE VISC 2% 200 MG PO ONE ×2 (17:09)
--- NOTE | 2017-09-02 17:12 | Emergency Department Record ---
History of Present Illness - General Chief Complaint: Abdominal Pain Stated Complaint: ABD PAIN Time Seen by Provider: 09/02/17 14:41 Source: Patient Mode of Arrival: Ambulatory Limitations: No limitations - History of Present Illness MD Complaint: Abdominal pain Onset/Timin -: Hour(s) Location: LUQ, RUQ Radiation: None Migration to: No migration Severity: Severe Quality: Stabbing Consistency: Constant Improves With: Nothing Worsens With: Nothing Associated Symptoms: Diarrhea, Hematemesis, Hematochezia, Melena, Vomiting - Related Data Previous Rx's Medication Instructions Recorded Clindamycin HCl [Cleocin HCl] 300 mg PO Q6H #32 cap 05/13/17 Ibuprofen [Motrin 600Mg] 600 mg PO Q6H PRN #40 05/13/17 Omeprazole [Prilosec] 20 mg PO DAILY #14 cap. 09/02/17 Ondansetron [Zofran Odt] 4 mg PO Q8H #10 tab.rapdis 09/02/17 Allergies Allergy/AdvReac Type Severity Reaction Status Date / Time No Known Drug Allergies Allergy Verified 09/02/17 14:25 Travel Screening - Travel/Exposure Within Last 30 Days Have you traveled within the last 30 days?: No Review of Systems Constitutional: Reports: As per HPI. Denies: Chills, Fever, Malaise, Night sweats, Weakness, Weight change Eyes: Reports: As per HPI. Denies: Eye discharge, Eye pain, Photophobia, Vision change ENT: Reports: As per HPI. Denies: Congestion, Dental pain, Ear pain, Epistaxis , Hearing loss, Throat pain Respiratory: Reports: As per HPI. Denies: Cough, Dyspnea, Hemoptysis, Stridor, Wheezes Cardiovascular: Reports: As per HPI. Denies: Arrhythmia, Chest pain, Dyspnea on exertion, Edema, Murmurs, Orthopnea, Palpitations, Paroxysmal nocturnal dyspnea, Rheumatic Fever, Syncope Endocrine: Reports: As per HPI. Denies: Fatigue, Heat or cold intolerance, Polydipsia, Polyuria Gastrointestinal: Reports: As per HPI, Abdominal pain, Hematemesis, Hematochezia , Melena, Nausea, Vomiting. Denies: Constipation, Diarrhea Genitourinary: Reports: As per HPI. Denies: Dysuria, Frequency, Hematuria, Incontinence, Retention, Testicular pain, Testicular mass, Urgency Musculoskeletal: Reports: As per HPI. Denies: Arthralgia, Back pain, Gout, Joint swelling, Myalgia, Neck pain Skin: Reports: As per HPI. Denies: Bruising, Change in color, Change in hair/ nails, Lesions, Pruritus, Rash Neurological: Reports: As per HPI. Denies: Abnormal gait, Confusion, Headache, Numbness, Paresthesias, Seizure, Tingling, Tremors, Vertigo, Weakness Psychiatric: Reports: As per HPI. Denies: Anxiety, Auditory hallucinations, Depression, Homicidal thoughts, Suicidal thoughts, Visual hallucinations Hematological/Lymphatic: Reports: As per HPI. Denies: Anemia, Blood Clots, Easy bleeding, Easy bruising, Swollen glands Past Medical History - SOCIAL HISTORY Smoking Status: Current every day smoker Alcohol Use: None Drug Use: None - RESPIRATORY Hx Respiratory Disorders: No - CARDIOVASCULAR Hx Cardio Disorders: No - NEURO Hx Neuro Disorders: No - GI Hx GI Disorders: No - Hx Genitourinary Disorders: No - ENDOCRINE Hx Endocrine Disorders: No - MUSCULOSKELETAL Hx Musculoskeletal Disorders: No - PSYCH Hx Psych Problems: No - HEMATOLOGY/ONCOLOGY Hx Hematology/Oncology Disorders: No Family Medical History Any Significant Family History?: Yes Hx Cancer: Father, Mother, Grandparents Hx Depression: Brother/Sister Hx Diabetes: Mother Hx HTN: Father, Mother Physical Exam - General Limitations: No limitations Course Vital Signs 09/02/17 09/02/17 14:30 16:12 Temperature 98.3 F Pulse Rate 133 H Pulse Rate [ 106 H Pulse Ox Probe] Respiratory 35 H 17 Rate Blood Pressure 151/103 Blood Pressure 128/70 [Left Arm] Pulse Ox 97 92 L Medical Decision Making - Lab Data Result diagrams: 09/02/17 14:50 09/02/17 14:50 Lab Results 09/02/17 09/02/17 Range/Units 14:50 14:50 WBC 13.6 H (4.2-12.2) K/uL RBC 4.60 (4.40-5.70) M/uL Hgb 14.0 (14.0-18.0) gm/dl Hct 39.9 L (42.0-52.0) % MCV 86.7 (81-97) fl MCH 30.4 (27-33) pg MCHC 35.1 (32-36) g/dl RDW 12.4 (11.5-14.5) % Plt Count 285 (130-400) K/uL MPV 9.9 (7.4-10.4) fl Gran % 71.8 (47-80) % Lymphocytes % 21.3 (16-45) % Monocytes % 6.6 (0-9) % Eosinophils % 0.1 (0-6) % Basophils % 0.2 (0-6) % Sodium 139 (136-145) mmol/L Potassium 3.4 (3.4-4.5) mmol/L Chloride 97 L (98-107) mmol/L Carbon Dioxide 27.0 (22-29) mmol/L Anion Gap 15.0 (7-16) BUN 17 (6-20) mg/dL Creatinine 0.7 (0.7-1.2) mg/dL Estimated GFR > 60 mL/min Random Glucose 140 H (74-109) mg/dL Calcium 9.8 (8.6-10.0) mg/dL Total Bilirubin 0.50 (0.2-1.0) mg/dL Direct Bilirubin < 0.2 (0-0.3) mg/dL AST 23 (10.0-50.0) U/L ALT 19 (<41) U/L Alkaline Phosphatase 62 (40-129) U/L Total Protein 8.0 (6.6-8.7) g/dL Albumin 5.1 H (4.0-5.0) g/dL Lipase 10 L (13-60) U/L Disposition Clinical Impression: GI bleed Qualifiers: GI bleed type/associated pathology: gastritis Gastritis type: unspecified gastritis Qualified Code(s): K29.71 - Gastritis, unspecified, with bleeding Disposition: Home, Self-Care Condition: (1) Good Instructions: Gastrointestinal Bleeding (ED) Additional Instructions: follow up with GI doctor. return sooner if worse. no motrin, peptobismal or aspirin. maalox for abdominal discomfort. Prescriptions: Omeprazole [Prilosec] 20 mg PO DAILY #14 cap. Ondansetron [Zofran Odt] 4 mg PO Q8H #10 tab.rapdis Referrals: [facility] Specialty Clinics [Provider Group] LINDA CHUNG [DOCTOR OF OSTEOPATH] - Forms: Patient Portal Access Quality - Quality Measures Quality Measures: N/A - Blood Pressure Screening Does Patient Have Any of the Following: No Blood Pressure Classification: Hypertensive Reading Systolic Measurement: 151 Diastolic Measurement: 103 Screening for High Blood Pressure: < First Hypertensive BP, F/U Documented > [ G8950] First Hypertensive Follow-up Interventions: Follow-up with rescreen GT 1 day and LT 4 weeks.
--- NOTE | 2017-09-03 08:37 | CT SCAN REPORT ---
DATE: 09/02/2017. EXAM: CT OF THE ABDOMEN AND PELVIS WITHOUT CONTRAST. HISTORY: Vomiting. TECHNIQUE: CT of the abdomen and pelvis was performed without intravenous contrast. Oral contrast was utilized. Lack of intravenous contrast limits evaluation of solid visceral organs. COMPARISON: None. FINDINGS: Limited evaluation of the lung bases is unremarkable. Osseous structures are grossly intact. The liver, spleen, adrenal glands, pancreas, and kidneys are unremarkable. The gallbladder is present. No evidence for bowel obstruction. Normal appendix. No free air or free fluid. The urinary bladder appears somewhat distended. Correlate with history. IMPRESSION: A SOMEWHAT DISTENDED APPEARANCE TO THE URINARY BLADDER. THE REMAINDER IS UNREMARKABLE. JOB NUMBER: [id number] MTDD
== END 2017-09-02 17:37 | disposition home or self-care (01) ==
LOC: ER 14:19
DX: K29.71 Gastritis, unspecified, with bleeding (principal); R10.84 Generalized abdominal pain; F17.210 Nicotine dependence, cigarettes, uncomplicated
CPT/HCPCS: 99284 ×2; 96374; 96375; 96361; 83690; 85025; 80076; 80048; 74176; J2405; J2060; J1170; C9113; J7030